=== PATIENT | male | born 1970 | race Caucasian/White ===

== ENCOUNTER → 2019-05-25 | Outpatient (CLI) | payer BC ==
--- NOTE | 2019-05-25 14:24 | XR ---
EXAMINATION TYPE: XR chest 2V DATE OF EXAM: 05/25/2019 COMPARISON: NONE HISTORY: Shortness of breath TECHNIQUE: Frontal and lateral views of the chest are obtained. FINDINGS: Scattered senescent parenchymal changes noted. Hyperinflation compatible with COPD. No evidence for infiltrate. No evidence for atelectasis. Heart size is stable. Mediastinal structures are stable and grossly unremarkable. No evidence for hilar prominence. Degenerative changes dorsal spine. IMPRESSION: 1. No evidence for acute pulmonary disease.
== END | disposition home or self-care (01) ==
LOC: RADXRYALE 14:02
PROVIDERS: ATTEND Physician Assistant
DX: J18.0 Bronchopneumonia, unspecified organism (principal)
CPT/HCPCS: 71046

== ENCOUNTER → 2020-07-03 | Outpatient (CLI) | payer BC ==
--- NOTE | 2020-07-03 08:53 | XR ---
EXAMINATION TYPE: XR cervical spine comp DATE OF EXAM: 07/03/2020 CLINICAL HISTORY: pain COMPARISON: NONE TECHNIQUE: Frontal, lateral, oblique, swimmers, and open mouth view of the cervical spine are obtaine d. FINDINGS: The cervical spine is visualized in its entirety from C1 thru the top of T1 level. It is s atisfactory in alignment without evidence of acute fracture or dislocation. The pre-vertebral soft t issue appears within normal limits. Moderate degenerative disc space narrowing noted at C4-5 through C6-7 with ventral spondylosis. Reversal of the normal cervical lordosis may reflect underlying muscle spasticity. The C1-C2 articulation is unremarkable on the open mouth view. The oblique images are w ithin normal limits. IMPRESSION: No acute fracture or dislocation is seen in the cervical spine.ICD 10 NO FRACTURE, INITI AL EVALUATION
== END ==
LOC: RADXRYALE 08:34
PROVIDERS: ATTEND Family Medicine
DX: M54.2 Cervicalgia (principal); G24.3 Spasmodic torticollis
CPT/HCPCS: 72050

== ENCOUNTER → 2020-07-05 | Outpatient (CLI) | payer BC ==
--- NOTE | 2020-07-05 09:14 | MR ---
MRI CERVICAL SPINE: CLINICAL HISTORY: Cervical disc degeneration C4-C5, C5-C6, C6-C7, cervicalgia, muscle weakness, and p aresthesia of the skin. Numbness and sharp pains into left arm and fingers. TECHNIQUE: Multiplanar, multisequence imaging of the cervical spine is performed without IV contrast. COMPARISON: Cervical spine x-ray July 03, 2020. FINDINGS: Sagittal images of the cervical spine show the craniocervical junction to appear within nor mal limits. The cervical and upper thoracic spinal cord is normal in caliber and signal. There is gr boni 1 retrolisthesis C3 on C4 and C4 on C5. The vertebral body and intravertebral disk heights are no rmal. The bone marrow signal intensity is within normal limits. Axial images show C2-C3 level to appear within normal limits. Images at C3-C4 level shows spondylosis with broad-based posterior disc protrusion and uncovertebral facet arthropathy, there is moderate left greater than right bilateral neural foraminal narrowing and effacement of the anterior thecal sac. Axial images at C4-C5 level show spondylolisthesis with lobulated posterior disc protrusion, there is uncovertebral vertebral facet degenerative change, there is moderate left and advanced right-sided n eural foraminal narrowing. Axial images at C5-C6 level shows broad-based central disc protrusion mildly effacing anterior thecal sac with [id number] bilateral neural foraminal narrowing. Axial images at C6-C7 level shows a left paracentral disc protrusion effacing anterolateral thecal sa c, there is asymmetric mild left-sided neural foraminal narrowing. Axial images at C7-T1 level show larger focal left paracentral disc protrusion effacing and throughou t thecal sac and causing advanced left-sided neural foraminal narrowing. IMPRESSION: Multilevel spondylolisthesis C3-C4 and C4-C5 levels. Multilevel degenerative changes grea test at C3-C4, C4-C5, and C7-T1 levels as detailed above.
== END | disposition home or self-care (01) ==
LOC: RADMRIMAIN 08:00
PROVIDERS: ATTEND Physician Assistant Medical
DX: M50.20 Other cervical disc displacement, unspecified cervical region (principal); M47.813 Spondylosis without myelopathy or radiculopathy, cervicothoracic region; M43.12 Spondylolisthesis, cervical region; M99.71 Connective tissue and disc stenosis of intervertebral foramina of cervical region
CPT/HCPCS: 72141

== ENCOUNTER → 2021-10-01 | Outpatient (CLI) | payer BC ==
--- NOTE | 2021-10-01 21:37 | XR ---
EXAMINATION TYPE: XR ankle complete LT DATE OF EXAM: 10/01/2021 COMPARISON: NONE INDICATION: Ankle pain, swelling after stepping down off ladder incorrectly TECHNIQUE: 3 views of the left ankle FINDINGS: Few millimetric bone fragments are seen at the tip of the lateral malleolus which could represent seq uela of avulsion fracture. This could be acute or chronic, please correlate clinically. Mild soft tissue swelling overlying the lateral malleolus. No other definite acute fracture line iden tified. Present ankle mortise with a smooth talar dome. IMPRESSION: Suspected avulsion fracture of the lateral malleolus tip which could be acute or chronic, please joe elate clinically.
== END | disposition home or self-care (01) ==
LOC: RADXRYALE 14:39
PROVIDERS: ATTEND Physician Assistant Medical
DX: M25.572 Pain in left ankle and joints of left foot (principal); M79.89 Other specified soft tissue disorders

== ENCOUNTER → 2022-07-29 | Outpatient (CLI) | payer BC ==
--- NOTE | 2022-07-29 10:17 | XR ---
EXAMINATION TYPE: XR chest 2V DATE OF EXAM: 07/29/2022 COMPARISON: 05/25/2019 INDICATION: Cough and congestion x1 month TECHNIQUE: Frontal and lateral views of the chest are obtained. FINDINGS: The heart size is normal. The pulmonary vasculature is normal. The lungs are clear. IMPRESSION: 1. No acute pulmonary process.
== END | disposition home or self-care (01) ==
LOC: RADXRYALE 09:58
PROVIDERS: ATTEND Physician Assistant
DX: R06.02 Shortness of breath (principal)
CPT/HCPCS: 71046

== ENCOUNTER → 2024-06-14 | Outpatient (CLI) | payer BC ==
--- NOTE | 2024-06-14 16:09 | US ---
EXAMINATION TYPE: US venous doppler duplex LE RT DATE OF EXAM: 06/14/2024 3:44 PM COMPARISON: NONE CLINICAL INDICATION: Male, 53 years old with history of R22.41 SWELLING,MASS AND LUMP; Right leg pain , Pain TECHNIQUE: The lower extremity deep venous system is examined utilizing real time linear array sonog nilda with graded compression, color doppler sonography, and spectral doppler. SIDE PERFORMED: Right FINDINGS: VESSELS IMAGED: Common Femoral Vein Deep Femoral Vein Greater Saphenous Vein * Femoral Vein Popliteal Vein Small Saphenous Vein * Proximal Calf Veins (* superficial vessels) Right Leg: Negative for DVT, Color Doppler imaging shows patency of the vessels. Spectral waveforms are within normal limits. IMPRESSION: No evidence of deep vein thrombosis of the right lower extremity. [facility], , 06/14/2024 4:06 PM
== END | disposition home or self-care (01) ==
LOC: RADUSWWP 14:49
PROVIDERS: ATTEND Family Medicine
DX: R22.41 Localized swelling, mass and lump, right lower limb (principal); M79.604 Pain in right leg

== ENCOUNTER → 2024-06-19 | Outpatient (CLI) | payer BC ==
--- NOTE | 2024-06-19 17:12 | XR ---
EXAMINATION TYPE: XR tibia fibula RT DATE OF EXAM: 06/19/2024 5:04 PM COMPARISON: None. CLINICAL INDICATION: Male, 53 years old with history of [id number] RT LOWER LEG PAIN, TECHNIQUE: Two views of the right leg are obtained. FINDINGS: There is no acute fracture or dislocation seen in the right tibia or fibula. No suspicious focal osseous lesion. The right knee and ankle joints appear within normal limits. The overlying s oft tissue appears unremarkable. IMPRESSION: As above. [facility], , 06/19/2024 5:10 PM
== END | disposition home or self-care (01) ==
LOC: RADXRYALE 16:47
PROVIDERS: ATTEND Physician Assistant Medical
DX: M79.661 Pain in right lower leg (principal)